=== PATIENT | female | born 1995 ===

== ENCOUNTER 2019-06-30 05:40 | Day surgery (SDC) | payer OTHER ==
[2019-06-30] MEDS ORDERED: Tylenol #3 PO (11:02)
[2019-06-30] MEDS ORDERED: DOXY 100100 MG IV (11:02)
== END 2019-06-30 14:20 | disposition home or self-care (01) ==
LOC: CIR.AMB 05:40
DX: N84.0 Polyp of corpus uteri (principal); D25.0 Submucous leiomyoma of uterus

== ENCOUNTER 2021-11-14 06:50 | Outpatient (CLI) | payer OTHER | END 2021-11-14 07:08 | disposition home or self-care (01) | LOC: LAB 06:50 | PROVIDERS: ATTEND Internal Medicine Hematology & Oncology | DX: D50.8 Other iron deficiency anemias (principal); I10 Essential (primary) hypertension; D68.0 Von Willebrand disease; D51.3 Other dietary vitamin B12 deficiency anemia; E56.1 Deficiency of vitamin K ==

== ENCOUNTER → 2021-11-14 | Outpatient (CLI) | payer OTHER ==
[~2021-11-14] MED LIST: DOXY 100100 MG IV; Tylenol #3 PO
== END | disposition home or self-care (01) ==
LOC: SONOGRAMA 11:59
PROVIDERS: ATTEND Internal Medicine Hematology & Oncology
DX: E03.8 Other specified hypothyroidism (principal)

== ENCOUNTER → 2022-11-18 07:04 | Outpatient (CLI) | payer OTHER | END | disposition home or self-care (01) | LOC: LAB 07:04 | PROVIDERS: ATTEND Internal Medicine Hematology & Oncology | DX: D50.8 Other iron deficiency anemias (principal); R79.9 Abnormal finding of blood chemistry, unspecified; I10 Essential (primary) hypertension; R74.02 Elevation of levels of lactic acid dehydrogenase [LDH]; K76.89 Other specified diseases of liver; E50.8 Other manifestations of vitamin A deficiency; D51.8 Other vitamin B12 deficiency anemias; D68.8 Other specified coagulation defects; D69.1 Qualitative platelet defects; Z80.3 Family history of malignant neoplasm of breast; D68.01 Von Willebrand disease, type 1; D51.3 Other dietary vitamin B12 deficiency anemia ==

== ENCOUNTER 2022-12-04 06:38 | Outpatient (CLI) | payer OTHER | END 2022-12-04 06:39 | disposition home or self-care (01) | LOC: LAB 06:38 | PROVIDERS: ATTEND Internal Medicine | DX: D51.9 Vitamin B12 deficiency anemia, unspecified (principal) ==

== ENCOUNTER 2022-12-11 07:20 | Outpatient (CLI) | payer OTHER | END 2022-12-11 07:23 | disposition home or self-care (01) | LOC: LAB 07:20 | PROVIDERS: ATTEND Internal Medicine | DX: D69.3 Immune thrombocytopenic purpura (principal) ==